=== PATIENT | male | born 1940 | race Caucasian/White ===

== ENCOUNTER 2018-03-20 07:30 | Inpatient (IN) | payer MEDICARE, BC ==
[2018-03-16 13:58] LABS: BASOPHILS % (AUTO) 0.3 % (0-1); EOSINOPHILS # (AUTO) 0.4 X10'3 (0-0.9); EOSINOPHILS % (AUTO) 6.3 % (0-6); LYMPHOCYTES # (AUTO) 1.2 X10'3 (1.1-4.8); LYMPHOCYTES % (AUTO) 18.8 % (21-51); MEAN CORPUSCULAR HEMOGLOBIN 36.1 PG (27.0-31.0); MEAN CORPUSCULAR HGB CONC 33.2 % (33.0-36.5); MEAN CORPUSCULAR VOLUME 108.8 FL (78-98); MEAN PLATELET VOLUME 6.9 FL (7.4-10.4); MONOCYTES # (AUTO) 0.7 X10'3 (0-0.9); MONOCYTES % (AUTO) 11.7 % (2-12); NEUTROPHILS # (AUTO) 3.9 X10'3 (1.8-7.7); NEUTROPHILS % (AUTO) 62.9 % (42-75); PRE OP HEMATOCRIT 34.5 % (42.0-52.0); PRE OP HEMOGLOBIN 11.5 g/dL (14.0-17.9); PRE OP PLATELET COUNT 132 X10'3 (140-440); RED BLOOD COUNT 3.17 X10'6 (4.70-6.10)
[2018-03-16 14:25] LABS: INR 1.1 INR; PARTIAL THROMBOPLASTIN TIME 31 SECONDS (22-32); PROTHROMBIN TIME 11.1 SECONDS (9.0-12.0)
[2018-03-16 14:33] LABS: ALBUMIN 3.4 G/DL (3.4-5.0); ALKALINE PHOSPHATASE 146 IU/L (46-116); BLOOD UREA NITROGEN 21 MG/DL (7-18); BUN/CREATININE RATIO 22.8 (5.4-32.0); CALCIUM 8.9 MG/DL (8.5-10.1); CHLORIDE 106 MMOL/L (99-107); CREATININE 0.92 MG/DL (0.60-1.10); PRE OP ALT 17 U/L (30-65); PRE OP ANION GAP 9 (8-16); PRE OP AST 16 U/L (10-37); PRE OP BILIRUB, TOTAL 0.6 MG/DL (0.0-1.0); PRE OP GLUCOSE 124 MG/DL (70-104); PRE OP SODIUM 141 MMOL/L (135-145); TOTAL CARBON DIOXIDE 26.3 MMOL/L (24-32); TOTAL PROTEIN 6.8 G/DL (6.4-8.2); eGFR 80 ML/MIN
[~2018-03-20] VITALS: Ht 165.1 cm; Wt 67.3 kg
[2018-03-20] VITALS (18 sets, daily range): BP systolic 105–146; BP diastolic 57–85
[~2018-03-20 07:30] MED LIST: Cefazolin 2GM/50ML dext iso,osmotic IVPB IV ONE; DILT120C51 PO; FURO40TA4 PO; GABA800T2 PO; HYDR-565 PO; OMEP20TA5 PO; TERA10CA4 PO; VANCOMYCIN INJ 1000 MG in NORMAL SALINE 250ml IV.SOLN IV ONE; famotidine 20mg tablet PO ONE; ringers solution, lacted 1,000 ML IV SCH; tranexamic acid inj. 650 MG in normal saline 100ml IV soln 93.5 ML IV ONE
[2018-03-20] MEDS ORDERED: tranexamic acid inj. 650 MG in normal saline 100ml IV soln 93.5 ML IV ONE (09:30)
[2018-03-20] MEDS ORDERED: ROPIVAcaine 0.5% (5mg/ml) 30ml vial ONE ×2 (12:38→13:01)
[2018-03-20] MEDS ORDERED: LIDOcaine 2% (20mg/ml) 5ml vial ONE (12:49)
[2018-03-20] MEDS ORDERED: propofol inj 20 ML IV ONE (12:49)
[2018-03-20] MEDS ORDERED: dexamethasone sod phosphate 4mg/ml inj. ONE (12:50)
[2018-03-20] MEDS ORDERED: vancomycin 1,000mg inj ONE (13:01)
[2018-03-20] MEDS ORDERED: ketorolac trometh. 30mg/ml inj. ONE (13:01)
[2018-03-20] MEDS ORDERED: ringers solution, lacted 1,000 ML IV SCH (13:39)
[2018-03-20] MEDS ORDERED: hydrALAZINE 20mg/ml inj. IV PRN (13:40)
[2018-03-20] MEDS ORDERED: sevoflurane 250ml liquid IH ONE (13:40)
[2018-03-20] MEDS ORDERED: morphine 4 MG/ML inj SYRINge IV PRN ×2 (13:40)
[2018-03-20] MEDS ORDERED: ondansetron/PF 4mg/2ml inj IV PRN ×2 (13:40→16:10)
[2018-03-20] MEDS ORDERED: fentaNYL/PF 50MCG/1 ML 2ML syringe IV PRN ×2 (13:40)
[2018-03-20] MEDS ORDERED: labetalol 20mg/4ml (5mg/ml) syringe IV PRN (13:40)
[2018-03-20] MEDS ORDERED: fentaNYL/PF 50MCG/1 ML 2ML syringe ONE (13:57)
[2018-03-20] MEDS ORDERED: midazolam 2 mg/2 ml injection ONE (13:58)
[2018-03-20] MEDS ORDERED: ondansetron/PF 4mg/2ml inj ONE (14:21)
[2018-03-20] MEDS ORDERED: acetaminophen 325mg tablet PO PRN (16:10)
[2018-03-20] MEDS ORDERED: bisacodyl 10mg suppository rectal RC PRN (16:10)
[2018-03-20] MEDS ORDERED: diphenhydrAMINE 25mg capsule PO PRN ×2 (16:10)
[2018-03-20] MEDS ORDERED: oxyCODONE IR 5mg (immed. release) tablet PO PRN (16:10)
[2018-03-20] MEDS ORDERED: HYDROmorphone 1 mg/ml syringe IV PRN ×2 (16:10)
[2018-03-20] MEDS ORDERED: magnesium hydroxide 30ml (MOM) UD suspension PO PRN (16:10)
[2018-03-20 16:27] LABS: BF RBC COUNT 1027000 /CU MM; BF WBC COUNT 1060 /CU MM (0-1000); BFAPPEAR BLOODY; BFCOLOR RED; BFVOLUME 2 ML; LYMPHOCYTES,BODY FLUID 40 %; MONOCYTES,BODY FLUID 4 %; NEUTROPHILS,BODY FLUID 56 %
[2018-03-20] MEDS ORDERED: tranexamic acid inj. 650 MG in normal saline 100ml IV soln 100 ML IV ONE (19:00)
[2018-03-20] MEDS: furosemide 40mg tablet PO SCH (19:13)
[2018-03-20] MEDS: acetaminophen 325mg tablet PO SCH (20:00)
[2018-03-20] MEDS ORDERED: vancomycin/NS 1 GM ADD-VANTAGE 250 ML IV SCH (20:00)
[2018-03-20] MEDS: gabapentin 400mg capsule PO SCH (20:48)
[2018-03-20] MEDS: oxyCODONE IR 5mg (immed. release) tablet PO PRN ×2 (20:57→22:03)
[2018-03-20] MEDS ORDERED: sennosides 8.6mg tablet PO SCH (21:00)
[2018-03-20] MEDS ORDERED: terazosin 5mg capsule PO SCH (21:00)
[2018-03-20] MEDS ORDERED: gabapentin 300mg capsule PO SCH (21:00)
[2018-03-21] MEDS: ceFAZolin 1GM/D5W- ADD-VANTAGE 50 ML IV SCH ×2 (00:04→08:28)
[2018-03-21] MEDS: potassium cl 20mEq in 1/2 NS 1,000 ML IV SCH ×2 (00:07→00:08)
[2018-03-21 02:00] VITALS: BP 145/80
[2018-03-21] MEDS: acetaminophen 325mg tablet PO SCH ×3 (02:00→14:00)
[2018-03-21] MEDS: oxyCODONE IR 5mg (immed. release) tablet PO PRN ×2 (03:27→13:46)
[2018-03-21 06:00] VITALS: BP 144/82
[2018-03-21 06:24] LABS: BASOPHILS % (AUTO) 0 % (0-1); EOSINOPHILS # (AUTO) 0.1 X10'3 (0-0.9); EOSINOPHILS % (AUTO) 1.2 % (0-6); HEMATOCRIT 31.4 % (42.0-52.0); HEMOGLOBIN 10.4 g/dl (14.0-17.9); LYMPHOCYTES # (AUTO) 1.1 X10'3 (1.1-4.8); LYMPHOCYTES % (AUTO) 17.2 % (21-51); MEAN CORPUSCULAR HEMOGLOBIN 36.3 PG (27.0-31.0); MEAN CORPUSCULAR VOLUME 109.9 FL (78-98); MEAN PLATELET VOLUME 7.6 FL (7.4-10.4); MONOCYTES # (AUTO) 0.2 X10'3 (0-0.9); MONOCYTES % (AUTO) 2.9 % (2-12); NEUTROPHILS # (AUTO) 5.2 X10'3 (1.8-7.7); NEUTROPHILS % (AUTO) 78.7 % (42-75); PLATELET COUNT 114 X10'3 (140-440); RED BLOOD COUNT 2.86 X10'6 (4.70-6.10); WHITE BLOOD COUNT 6.7 X10'3 (4.5-11.0)
[2018-03-21 07:23] LABS: ANION GAP 7 (8-16); CHLORIDE 104 MMOL/L (99-107); POTASSIUM 4.7 MMOL/L (3.5-5.1); SODIUM 139 MMOL/L (135-145); TOTAL CARBON DIOXIDE 27.7 MMOL/L (24-32)
[2018-03-21] MEDS ORDERED: pantoprazole 40mg Tablet.DR PO SCH (07:30)
[2018-03-21] MEDS ORDERED: diltiazem CD 120mg capsule (once-daily) PO SCH (08:00)
[2018-03-21] MEDS: furosemide 40mg tablet PO SCH (08:28)
[2018-03-21] MEDS: gabapentin 400mg capsule PO SCH ×2 (08:29→13:46)
[2018-03-21] MEDS ORDERED: aspirin 325mg tablet PO SCH (08:30)
[2018-03-21 10:00] VITALS: BP 128/77
[2018-03-21] MEDS ORDERED: celeCOXIB 100mg capsule PO SCH (20:00)
[2018-03-22] MEDS ORDERED: acetaminophen 325mg tablet PO PRN (16:10)
== END 2018-03-21 14:50 | disposition home or self-care (01) | DRG 483 ==
LOC: PAS IN 09:24 → EDSTATUS 12:30 → ORTHO 4S 17:04
PROVIDERS: ADMIT Orthopaedic Surgery; ATTEND Orthopaedic Surgery
PROC: 0RRK00Z Replacement of Left Shoulder Joint with Reverse Ball and Socket Synthetic Substitute, Open Approach (ICD-10-PCS; 2018-03-20)
PROC: 0RPK0JZ Removal of Synthetic Substitute from Left Shoulder Joint, Open Approach (ICD-10-PCS; 2018-03-20)
PROC: 3E0T3BZ Introduction of Anesthetic Agent into Peripheral Nerves and Plexi, Percutaneous Approach (ICD-10-PCS; principal; 2018-03-20 13:40)
DX: T84.098A Other mechanical complication of other internal joint prosthesis, initial encounter (principal); D62 Acute posthemorrhagic anemia; M75.122 Complete rotator cuff tear or rupture of left shoulder, not specified as traumatic; I10 Essential (primary) hypertension; K21.9 Gastro-esophageal reflux disease without esophagitis; Z96.641 Presence of right artificial hip joint; Z96.642 Presence of left artificial hip joint; F17.200 Nicotine dependence, unspecified, uncomplicated; I48.91 Unspecified atrial fibrillation; K22.70 Barrett's esophagus without dysplasia; Y83.1 Surgical operation with implant of artificial internal device as the cause of abnormal reaction of the patient, or of later complication, without mention of misadventure at the time of the procedure; N40.1 Benign prostatic hyperplasia with lower urinary tract symptoms; R35.0 Frequency of micturition; Z90.49 Acquired absence of other specified parts of digestive tract; Z88.8 Allergy status to other drugs, medicaments and biological substances; Z79.82 Long term (current) use of aspirin; Z79.01 Long term (current) use of anticoagulants; Z79.899 Other long term (current) drug therapy; Y92.89 Other specified places as the place of occurrence of the external cause
CPT/HCPCS: 36415; 80051; 80053; 85025; 85610; 85730; 87070; 87075; 89051; 97110; 97116; 97162; 97530; A4565; A6253; A6449; A7000; J0690; J1100; J1885; J2001; J2250; J2405; J2704; J2795; J3010; J3370; J7030; J7040; J7120; Q0163

== ENCOUNTER 2020-08-15 12:26 | Emergency (ER) | payer MEDICARE, OTHER ==
[~2020-08-15] VITALS: Ht 167.6 cm; Wt 56.8 kg
[~2020-08-15 12:26] MED LIST changes: -Cefazolin 2GM/50ML dext iso,osmotic IVPB IV ONE; +GABA800T11 PO; -GABA800T2 PO; +HYDR-4353 PO; -HYDR-565 PO; -VANCOMYCIN INJ 1000 MG in NORMAL SALINE 250ml IV.SOLN IV ONE; -famotidine 20mg tablet PO ONE; -ringers solution, lacted 1,000 ML IV SCH; -tranexamic acid inj. 650 MG in normal saline 100ml IV soln 93.5 ML IV ONE
[2020-08-15 13:12] LABS: BASOPHILS # (AUTO) 0.1 X10'3 (0-0.2); EOSINOPHILS % (AUTO) 0.9 % (0-6); HEMOGLOBIN 9.4 g/dl (14.0-17.9); LYMPHOCYTES # (AUTO) 0.5 X10'3 (1.1-4.8); LYMPHOCYTES % (AUTO) 9.6 % (21-51); MONOCYTES # (AUTO) 0.5 X10'3 (0-0.9); MONOCYTES % (AUTO) 10.4 % (2-12); NEUTROPHILS # (AUTO) 4.1 X10'3 (1.8-7.7); NEUTROPHILS % (AUTO) 78.1 % (42-75); WHITE BLOOD COUNT 5.2 X10'3 (4.5-11.0)
[2020-08-15 13:31] LABS: ALANINE AMINOTRANSFERASE 25 U/L (12-78); ALBUMIN 2.9 G/DL (3.4-5.0); ALBUMIN/GLOBULIN RATIO 0.9 (1.1-1.5); ALKALINE PHOSPHATASE 137 IU/L (46-116); ANION GAP 8 (8-16); ASPARTATE AMINO TRANSFERASE 28 U/L (10-37); BILIRUBIN,TOTAL 1.1 MG/DL (0.1-1.0); BLOOD UREA NITROGEN 19 MG/DL (7-18); BUN/CREATININE RATIO 30.6 (5.4-32.0); CALCIUM 8.6 MG/DL (8.5-10.1); CHLORIDE 108 MMOL/L (99-107); CREATININE 0.62 MG/DL (0.60-1.10); GLUCOSE 84 MG/DL (70-104); POTASSIUM 4.4 MMOL/L (3.5-5.1); SODIUM 143 MMOL/L (135-145); TOTAL CARBON DIOXIDE 27.4 MMOL/L (24-32); TOTAL PROTEIN 6.1 G/DL (6.4-8.2); eGFR > 90 ML/MIN
[2020-08-15 14:00] LABS: RED BLOOD COUNT 2.34 X10'6 (4.70-6.10)
[2020-08-15 14:01] LABS: HEMATOCRIT 28.2 % (42.0-52.0); MEAN CORPUSCULAR HGB CONC 33.2 g/dL (33.0-36.5); MEAN CORPUSCULAR VOLUME 120.5 FL (78-98); RED CELL DISTRIBUTION WIDTH 20.6 % (11.5-14.5)
[2020-08-15 14:02] LABS: PLATELET COUNT 54 X10'3 (140-440)
[2020-08-15] MEDS ORDERED: furosemide 40mg/4ml inj IV ONE (14:20)
[2020-08-15] MEDS ORDERED: furosemide 10 MG/1 ML 10ml inj IV ONE (14:20)
[2020-08-15] MEDS ORDERED: morphine 4 MG/ML inj SYRINge IV ONE (14:40)
[2020-08-15 14:51] LABS: PLATELET ESTIMATE DECREASED
[2020-08-15 14:52] LABS: ANISOCYTOSIS 3+; BURR CELLS FEW; POIKILOCYTOSIS 1+
[2020-08-15 14:53] LABS: SCHISTOCYTES FEW
--- NOTE | 2020-08-15 15:59 | NUR ---
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
--- NOTE | 2020-08-15 16:40 | NUR ---
CALLED PT DAUGHTER JOE HERNANDEZ FOR TRANSPORTATION PER PT SON IN LAW IT IS GOING TO TAKE 1 HOUR THEY LIVE IN [facility]
[2020-08-15 17:53] VITALS: BP 124/77
== END 2020-08-15 17:45 | disposition home or self-care (01) ==
LOC: ER 12:26
DX: S61.412A Laceration without foreign body of left hand, initial encounter (principal); M54.5 Low back pain; G89.29 Other chronic pain; M25.519 Pain in unspecified shoulder; I48.91 Unspecified atrial fibrillation; I11.0 Hypertensive heart disease with heart failure; I50.9 Heart failure, unspecified; Z98.890 Other specified postprocedural states; Z79.899 Other long term (current) drug therapy; W45.8XXA Other foreign body or object entering through skin, initial encounter; Y93.89 Activity, other specified; Y92.89 Other specified places as the place of occurrence of the external cause; Y99.8 Other external cause status
CPT/HCPCS: 36415; 71045; 72146; 80053; 83880; 84484; 85008; 85025; 93005; 96374; 96375; 99285; J1940; J2270